=== PATIENT | female | born 1945 | race Two or more races ===

== ENCOUNTER 2018-05-24 13:13 | Emergency (ER) | payer MEDICARE, OTHER ==
[~2018-05-24] VITALS: Ht 157.5 cm; Wt 69.9 kg
[2018-05-24 13:19] VITALS: Ht 157.5 cm; Wt 69.9 kg
[2018-05-24 14:19] LABS: BASOPHIL % 0.3 % (0-2); PLATELET COUNT 197 x10^3mcL (130-400); RED CELL DISTRIBUTION WIDTH 12.4 % (11.5-14.5)
[2018-05-24 14:39] LABS: ALKALINE PHOSPHATASE 145 U/L (46-116); ALT/SGPT 126 U/L (14-59); AST/SGOT 51 U/L (15-37); BILIRUBIN TOTAL 0.5 mg/dL (0.20-1.00); CALCIUM 9.3 mg/dL (8.5-10.1); CARBON DIOXIDE 25.1 mmol/L (21-32); CHLORIDE SERUM 93 mmol/L (98-107); CREATININE SERUM 1.5 mg/dL (0.6-1.0); POTASSIUM SERUM 4.4 mmol/L (3.5-5.1); SODIUM SERUM 129 mmol/L (136-145); TOTAL PROTEIN, SERUM 8.1 g/dL (6.4-8.2)
[2018-05-24 14:48] LABS: GLUCOSE SERUM 596 mg/dL (74-106)
[2018-05-24 17:17] VITALS: BP 154/81
== END 2018-05-24 17:17 | disposition home or self-care (01) ==
LOC: ED 13:13
PROVIDERS: Emergency Medicine
DX: E11.65 Type 2 diabetes mellitus with hyperglycemia (principal); N28.9 Disorder of kidney and ureter, unspecified; E86.0 Dehydration; R94.5 Abnormal results of liver function studies; I10 Essential (primary) hypertension
CPT/HCPCS: 36415; 82962; J1815

== ENCOUNTER 2019-09-11 19:04 | Emergency (ER) | payer MEDICARE, OTHER ==
[~2019-09-11] VITALS: Ht 149.9 cm; Wt 68.9 kg
[2019-09-11 19:25] VITALS: Ht 149.9 cm; Wt 68.9 kg
[2019-09-11 20:57] VITALS: BP 152/52
== END 2019-09-11 20:57 | disposition home or self-care (01) ==
LOC: ED 19:04
DX: K64.4 Residual hemorrhoidal skin tags (principal); K62.5 Hemorrhage of anus and rectum; I10 Essential (primary) hypertension; E11.9 Type 2 diabetes mellitus without complications